=== PATIENT | male | born 1955 | race Caucasian/White ===

== ENCOUNTER → 2017-02-17 | Day surgery (SDC) | payer OTHER ==
[~2017-02-17] VITALS: Ht 172.7 cm; Wt 107.5 kg
[~2017-02-17] MED LIST: AMMONIUM LACTA140 GM TP; ANDRODERM1 EAC1; APRESOLINE25 MG PO; ASPIRIN81 M2 PO; ATORVASTATIN CA40 MG PO; Ammonium Lactate TP; CLOPIDOGREL75 MG PO; CO Q-1030 MG PO; COSOPT EYE DROPS5 ML BOTH EYES; ENDOCET 5-3251 EACH PO; EYE DROP15 ML BOTH EYES; GLIPIZIDE5 MG PO; GLUCOTROL XL5 MG PO; JANUMET 50/11 TABLET PO; Keflex PO; LANTUS 10100 UNITS/ SC; LANTUS 3 M100 UNITS/ SC; LANTUS100 UNIT/1 SQ; LIPITOR20 MG PO; LISINOPRIL10 MG PO; LOPRESSOR50 MG PO; LYRICA225 MG PO; Lactinex,Floranex PO; METFORMIN HCL1000 MG PO; METOPROLOL TART25 MG PO; NASACORT AQ16.5 GM BOTH NARES; NORCO 5/3251 TABLET PO; NOVOLOG 10100 UNITS/ SC; OMEGA-3 + D SO1 EACH PO; OXYCODONE-ACET1 EACH PO; PERCOCET 5/31 TABLET PO; PLAVIX75 MG PO; SINGULAIR10 MG PO; ST. JOSEPH ASPI81 MG PO; TYLENOL REGULA325 MG PO; Tylenol Regular Stre PO; ULTRAM50 MG PO; VITAMIN B12-FO1 EACH PO; XALATAN2.5 ML BOTH EYES; [UNRECOGNIZED DRUG - CODE] PO; [UNRECOGNIZED DRUG - OTHER] PO; [UNRECOGNIZED DRUG - OTHER] PO
[2017-02-17 08:38] VITALS: BP 133/65
[2017-02-17 08:55] LABS: POINT-OF-CARE METER ID UU14174212
[2017-02-17 09:55] LABS: POINT-OF-CARE METER ID UU14174212
[2017-02-17 11:23] LABS: POINT-OF-CARE METER ID UU13113675
[2017-02-17 11:48] VITALS: BP 131/63
[2017-02-17 12:47] VITALS: BP 126/61
== END | disposition home or self-care (01) ==
LOC: SDC 07:58
PROVIDERS: Surgery
PROC: 0JB60ZZ Excision of Chest Subcutaneous Tissue and Fascia, Open Approach (ICD-10-PCS; principal; 2017-02-17)
DX: R22.2 Localized swelling, mass and lump, trunk (principal); I10 Essential (primary) hypertension; E11.9 Type 2 diabetes mellitus without complications; K21.9 Gastro-esophageal reflux disease without esophagitis; E66.01 Morbid (severe) obesity due to excess calories; Z68.39 Body mass index [BMI] 39.0-39.9, adult; C91.10 Chronic lymphocytic leukemia of B-cell type not having achieved remission; I25.2 Old myocardial infarction; F17.290 Nicotine dependence, other tobacco product, uncomplicated; Z79.4 Long term (current) use of insulin; Z79.82 Long term (current) use of aspirin
CPT/HCPCS: 82948; 88305; J0690; J1885; J2405; J3010